=== PATIENT | female | born 1985 | race Caucasian/White ===

== ENCOUNTER 2017-05-28 10:32 | Emergency (ER) | payer SELFPAY ==
[~2017-05-28] VITALS: Ht 170.2 cm; Wt 69.9 kg
[2017-05-28] MEDS ORDERED: KEFLEX500 MG PO (12:41)
[2017-05-28] MEDS ORDERED: MOTRIN800 MG PO (12:41)
[2017-05-28 13:03] VITALS: BP 125/79
== END 2017-05-28 13:04 | disposition home or self-care (01) ==
LOC: EME 10:32
DX: S00.83XA Contusion of other part of head, initial encounter (principal); S00.511A Abrasion of lip, initial encounter; Y04.2XXA Assault by strike against or bumped into by another person, initial encounter; Z88.0 Allergy status to penicillin
CPT/HCPCS: 70450; 70486; 99281; 99283